=== PATIENT | female | born 1995 | race Caucasian/White ===

== ENCOUNTER 2021-10-04 16:18 | Emergency (ER) | payer OTHER ==
[2021-10-04] MEDS ORDERED: Amoxicillin/Potassium Clav 875 MG TAB ONE (16:50)
== END 2021-10-04 16:59 | disposition home or self-care (01) ==
LOC: MADERS 16:18
DX: L03.213 Periorbital cellulitis (principal); F17.290 Nicotine dependence, other tobacco product, uncomplicated
CPT/HCPCS: 99283

== ENCOUNTER 2023-10-30 22:16 | Emergency (ER) | payer OTHER ==
[2023-10-30] MEDS ORDERED: Ondansetron PF 4 MG/2 ML Vial ONE (23:25)
[2023-10-30] MEDS ORDERED: Ketorolac Tromethamine 30 MG (1 mL) VIAL ONE (23:25)
[2023-10-30] MEDS ORDERED: Lactated Ringer's 1,000 ML ONE (23:25)
[2023-10-30 23:37] LABS: #Basophils 0.1 thou/uL (0.0-0.2); #Eosinphils 0.6 thou/uL (0.0-0.7); #Monocytes 0.3 thou/uL (0.11-0.59); %Basophils 0.9 % (0.0-1.0); %Eosinophils 7.7 % (0.0-10.0); %Lymphocytes 24.9 % (21.0-51.0); %Monocytes 4.2 % (0.0-10.0); %Neutrophils 62.4 % (42.0-75.0); Hematocrit 41.8 % (36.0-47.0); Hemoglobin 13.2 g/dL (12.0-16.0); Mean Corpuscular HGB CONC 31.7 g/dL (32.0-36.0); Mean Corpuscular Hemoglobin 27.3 pg (27.0-31.0); Mean Corpuscular Volume 86.2 fl (78.0-98.0); Mean Platelet Volume 11.1 fL (7.4-10.4); Platelet Count 165 10x3/uL (130-400); RBC Distribution Width 13.7 % (11.5-14.5); Red Blood Cell (RBC) Count 4.85 mill/uL (4.20-5.40); White Blood Cell (WBC) Count 7.9 10x3/uL (4.8-10.8)
[2023-10-31 00:03] LABS: ALT (SGPT) 33 U/L (8-55); AST (SGOT) 25 U/L (5-34); Albumin 3.9 g/dL (3.5-5.0); Alkaline Phosphatase 34 U/L (40-110); Anion Gap 14 mmol/L (10-20); BUN (Urea Nitrogen) 9 mg/dL (7.0-18.7); Bilirubin, Total 0.2 mg/dL (0.2-1.2); CK (CPK) 48 U/L (29-168); Calc. Creatinine Clearance 0 mL/min (70-130); Calcium 8.9 mg/dL (7.8-10.44); Carbon Dioxide 22 mmol/L (22-29); Chloride 107 mmol/L (98-107); Estimated GFR 112; Glucose 133 mg/dL (70-105); Lipase 33 U/L (8-78); Potassium 3.8 mmol/L (3.5-5.1); Protein, Total 6.9 g/dL (6.0-8.3); Sodium 139 mmol/L (136-145)
[2023-10-31 00:08] LABS: Troponin I Less than 0.010 ng/mL (< 0.028)
[2023-10-31 14:56] LABS: SARS-CoV-2 N1 Positive; SARS-CoV-2 N2 Positive; SARS-CoV-2 RNAse P1 Positive
== END 2023-10-31 00:30 | disposition home or self-care (01) ==
LOC: MADERS 22:16
DX: M79.10 Myalgia, unspecified site (principal); I10 Essential (primary) hypertension; F17.290 Nicotine dependence, other tobacco product, uncomplicated
CPT/HCPCS: 71046; 80053; 82550; 83690; 83735; 84484; 85025; 87635; 87804; 93005; 94760; 96361; 96374; 96375; J1885; J2405; J7120